=== PATIENT | male | born 1995 | race Caucasian/White ===

== ENCOUNTER 2023-07-03 16:32 | Emergency (ER) | payer OTHER, SELFPAY ==
[2023-07-03 16:43] VITALS: BP 145/102; PULSE 118; RESP 18; TEMP 36.8; O2SAT 98
--- NOTE | 2023-07-03 17:00 | DI.RAD_ITS ---
Exam(s) XR ANKLE LT COMPLETE EXAM: XR ANKLE LT COMPLETE CLINICAL HISTORY: trauma TECHNIQUE: 2D digital imaging was performed. Three views. COMPARISON: No exams were available for comparison FINDINGS: BONES: No acute fracture is present. No bony destructive lesion is seen. JOINTS:The ankle mortise is normally aligned. SOFT TISSUE: Normal. IMPRESSION: Unremarkable radiographs of the left ankle. DATA REPOSITORY: RADIATION DOSE DELIVERED:
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
--- NOTE | 2023-07-03 17:57 | DI.VRAD_ITS ---
PROCEDURE INFORMATION: Exam: XR Left Ankle Exam date and time: 07/03/2023 17:40 Age: 27 years old Clinical indication: Other: Trauma TECHNIQUE: Imaging protocol: Radiologic exam of the left ankle. Views: 3 or more views. COMPARISON: No relevant prior studies available. FINDINGS: Bones/joints: No acute fracture or subluxation. Soft tissues: Unremarkable. IMPRESSION: No acute bony pathology. Dictated and Authenticated by: Kinga Paulino MD. Ordering:RIDDHI Santiago MD
== END 2023-07-03 18:31 | disposition home or self-care (01) ==
PROVIDERS: Emergency Provider Emergency Medicine
DX: M79.605 Pain in left leg (principal)
CPT/HCPCS: 99283; 73610